=== PATIENT | female | born 1980 | race Caucasian/White ===

== ENCOUNTER 2020-06-29 12:20 | Emergency (ER) | payer OTHER ==
[~2020-06-29] VITALS: Ht 160 cm; Wt 72.6 kg
[~2020-06-29 12:20] MED LIST: ADDERALL 10 MG10 MG PO; ALBUTEROL2.5 MG/0.1 INH; ARMOUR THYROID15 M1 PO; RAPAFLO4 MG PO; SINGULAIR 10 MG10 M1 PO; VALIUM5 MG PO; WELLBUTRIN SR100 MG PO; XANAX 0.5 MG0.5 MG PO; ZYRTEC10 MG PO
[2020-06-29] MEDS ORDERED: VALIUM10 MG PO (12:28)
[2020-06-29] MEDS ORDERED: MOBIC15 MG PO (12:29)
[2020-06-29] MEDS ORDERED: CYMBALTA30 MG PO (12:30)
[2020-06-29] MEDS ORDERED: FLEXERIL PO (12:30)
[2020-06-29] MEDS ORDERED: SYMBICORT160 MCG/4. INH (12:30)
[2020-06-29 14:16] LABS: ABSOLUTE BASOPHILS 0.1 thou/uL (0.0-0.2); ABSOLUTE EOSINOPHILS 0.1 thou/uL (0.0-0.7); ABSOLUTE LYMPHOCYTES 1.2 thou/uL (0.8-5.3); ABSOLUTE MONOCYTES 0.3 thou/uL (0.0-1.2); ABSOLUTE NEUTROPHILS 6.8 thou/uL (1.6-8.1); BASOPHILS 0.6 %; EOSINOPHILS 0.7 %; HEMATOCRIT 39.9 % (37.0-47.0); HEMOGLOBIN 13.2 gm/dL (12.0-15.0); LYMPHOCYTES 14.8 %; MCH 28.2 pg (26.0-34.0); MCHC 33.1 g/dL (28.0-37.0); MCV 85.2 fL (80.0-100.0); MONOCYTES 3.7 %; NUCLEATED RBCS 0 /100WBC; PLATELET COUNT* 319 thou/uL (150-400); POLYS 80.2 %; RBC 4.69 mil/uL (4.20-5.00); RDW-CV 13.9 % (10.5-14.5); WBC 8.4 thou/uL (4.0-11.0)
[2020-06-29 14:25] LABS: CALCIUM 8.8 mg/dL (8.5-10.1); CREATININE 0.9 mg/dL (0.6-1.3); POTASSIUM 4.1 mmol/L (3.5-5.1)
[2020-06-29 14:30] LABS: ALBUMIN 3.9 g/dL (3.4-5.0); TOTAL BILIRUBIN 0.4 mg/dL (<0.1-1.0); TOTAL PROTEIN 8.1 g/dL (6.4-8.2)
[2020-06-29 14:49] LABS: URINE BILIRUBIN NEGATIVE (Negative); URINE BLOOD TRACE (Negative); URINE CLARITY CLEAR; URINE COLOR STRAW; URINE GLUCOSE-RANDOM NEGATIVE (Negative); URINE KETONES TRACE (Negative); URINE LEUKOCYTES-REFLEX NEGATIVE (Negative); URINE NITRITE-REFLEX NEGATIVE (Negative); URINE PROTEIN NEGATIVE (Negative); URINE UROBILINOGEN 0.2 E.U./dl (0.2-1.0)
[2020-06-29] MEDS ORDERED: BUTALB-APAP-CA1 EACH PO (15:18)
[2020-06-29] MEDS ORDERED: ONDANSETRON ODT4 MG PO (15:18)
[2020-06-29 15:28] VITALS: BP 126/76
== END 2020-06-29 15:29 | disposition home or self-care (01) ==
LOC: M.ERS 12:20
PROVIDERS: Emergency Medicine Emergency Medical Services; Physician Assistant
DX: G43.909 Migraine, unspecified, not intractable, without status migrainosus (principal); R11.2 Nausea with vomiting, unspecified; J45.909 Unspecified asthma, uncomplicated; M79.7 Fibromyalgia; E03.9 Hypothyroidism, unspecified; Z90.710 Acquired absence of both cervix and uterus